=== PATIENT | female | born 1965 | race Caucasian/White ===

== ENCOUNTER 2017-08-08 16:25 | Inpatient (IN) | payer MEDICAID ==
[2017-08-08] MEDS ORDERED: Sodium Chloride 0.9% 1,000 ML IV STA ×2 (16:53→19:54)
--- NOTE | 2017-08-08 17:12 | ED PDOC ---
Arrival/HPI - General Chief Complaint: GI Problem Time Seen by Provider: 08/08/17 16:48 Historian: Patient, Family - History of Present Illness Narrative History of Present Illness (Text): 08/08/17 17:04 51 yo F with no significant PMH presents to ER complaining of sudden onset of vertigo, nausea, and vomiting. She was sitting in her home, drinking coffee with her sisters, she turned her head to the left and suddenly felt very dizzy, saw the world spinning around her, and became nauseous and vomited. This started about 10-15 minutes prior to presentation. She has never had this before. She denies LOC, confusion, focal weakness or numbness, slurred speech, headache, chest pain, palpitations, shortness of breath. She denies any recent travel, recent illness, sick contacts. She does report that a week ago, her brother , and that she hasn't been eating much for the past few days , especially today. Time/Duration: Prior to Arrival Symptom Onset: Sudden Symptom Course: Unchanged Activities at Onset: Rest Past Medical History - Provider Review Nursing Documentation Reviewed: Yes - Travel History Have you recently traveled outside [place] w/in the past 3 mons?: No - Past History Past History: No Previous - Infectious Disease Hx of Infectious Diseases: None - Tetanus Immunization Tetanus Immunization: Unknown - Reproductive Menopause: No Currently : No - Psychiatric Hx Substance Use: No Family/Social History - Physician Review Nursing Documentation Reviewed: Yes Family/Social History: Unknown Family HX Smoking Status: Never Smoked Hx Alcohol Use: No Hx Substance Use: No Allergies/Home Meds Allergies/Adverse Reactions: Allergies No Known Allergies Allergy (Verified 08/08/17 16:34) Home Medications: Home Meds Medication Instructions Recorded Confirmed No Known Home Med 08/08/17 08/08/17 Review of Systems - Review of Systems Constitutional: Normal Eyes: Normal ENT: Normal Respiratory: Normal Cardiovascular: Normal Gastrointestinal: Nausea, Vomiting Genitourinary Female: Normal Musculoskeletal: Normal Skin: Normal Neurological: Dizziness, Other (Room-spinning vertigo) Endocrine: Normal Hemo/Lymphatic: Normal Psychiatric: Normal Physical Exam Vital Signs Temp Pulse Resp BP Pulse Ox 08/08/17 19:30 89 18 165/88 H 99 08/08/17 18:25 87 18 129/79 98 08/08/17 16:25 98.5 F 88 18 132/79 98 Pulse: Regular Appearance: Positive for: Non-Toxic, Uncomfortable Pain Distress: None Mental Status: Positive for: Alert and Oriented X 3 - Systems Exam Head: Present: Atraumatic, Normocephalic Pupils: Present: PERRL Extroacular Muscles: Present: Other (Left lateral nystagmus at rest) Conjunctiva: Present: Normal Mouth: Present: Dry Neck: Present: Normal Range of Motion Respiratory/Chest: Present: Clear to Auscultation, Good Air Exchange. No: Accessory Muscle Use Cardiovascular: Present: Regular Rate and Rhythm, Normal S1, S2 Abdomen: Present: Normal Bowel Sounds. No: Tenderness, Distention Upper Extremity: Present: Normal Inspection. No: Cyanosis, Edema Lower Extremity: Present: Normal Inspection. No: Edema, CALF TENDERNESS Neurological: Present: GCS=15, CN II-XII Intact, Speech Normal, Motor Func Grossly Intact, Normal Sensory Function, Other (Leftward nystagmus. Artemio Hallpike positive to the left, caused her to vomit) Skin: Present: Warm, Dry, Normal Color Psychiatric: Present: Alert, Oriented x 3, Normal Insight, Normal Concentration Medical Decision Making ED Course and Treatment: 08/08/17 17:36 Impression: Vertigo Differential Diagnosis included but are not limited to: BPPV, meneire's disease , vestibular neuroma, intracranial hypertension, CVA Plan: -- 1L NS IVF bolus -- Zofran 4mg IVP -- Decadron 10mg IVP -- Meclizine 50mg PO -- CT Head -- Reassess and disposition Prior Visits: None Progress Notes: 08/08/17 19:57 -- Patient feels slightly better after initial treatment, but did not yet receive decadron; patient vomited after meclizine; continues to feel tired, dizzy, weak, nauseous -- Attempted stephanie maneuver, patient did not tolerate, and vomited again -- Ordered labs, EKG, Chest X-ray, Urinalysis, UDS 08/08/17 21:16 -- Head CT negative -- EKG and CXR unremarkable -- Labs significant for mild transaminitis and hypokalemia; ordered k-rider -- Attempted stephanie again, patient had some difficulty, and did vomit again, but did tolerate the procedure, and felt slightly better after -- Still with some nystagmus; still complaining of dizziness, nausea, weakness -- Patient unable to ambulate or tolerate PO due to nausea -- Spoke to Dr. Engle and to medical van driver who accept patient admission to hospitalist service for intractable nausea and vomiting - Lab Interpretations Lab Results: 08/08/17 19:54 08/08/17 19:54 Lab Results 08/08/17 19:54: Beta HCG, Quant < 2.39 08/08/17 19:54: Sodium 143, Potassium 3.1 L, Chloride 104, Carbon Dioxide 25, Anion Gap 17, BUN 11, Creatinine 0.7, Est GFR ( Amer) > 60, Est GFR (Non- Af Amer) > 60, Random Glucose 130 H, Calcium 10.2, Magnesium 2.0, Total Bilirubin 0.4, AST 51 H, ALT 58 H, Alkaline Phosphatase 66, Lactate Dehydrogenase 555, Total Creatine Kinase 56, Troponin I < 0.01, Total Protein 7.6, Albumin 4.5, Globulin 3.1, Albumin/Globulin Ratio 1.5 08/08/17 19:54: PT 12.6 H, INR 1.10 H, APTT 29.0 08/08/17 19:54: WBC 10.1, RBC 4.35, Hgb 12.9, Hct 39.6, MCV 91.0, MCH 29.7, MCHC 32.6, RDW 14.1, Plt Count 255, MPV 12.6 H, Gran % 59.3, Lymph % (Auto) 33.2 , Bay % (Auto) 5.6, Eos % (Auto) 1.7, Baso % (Auto) 0.2, Gran # 5.98, Lymph # ( Auto) 3.3, Bay # (Auto) 0.6, Eos # (Auto) 0.2, Baso # (Auto) 0.02 - RAD Interpretation Radiology Orders: 08/08/17 16:56 HEAD W/O CONTRAST [CT] Stat 08/08/17 19:46 CHEST PORTABLE [RAD] Stat - Medication Orders Current Medication Orders: Potassium Chloride (Potassium Chloride 10 Meq/100 Ml) 10 meq in 100 mls @ 100 mls/hr IVPB Q2H CHEMO Stop: 08/09/17 00:14 Discontinued Medications Dexamethasone (Decadron Inj) 10 mg IVP STAT STA Stop: 08/08/17 16:56 Last Admin: 08/08/17 20:06 Dose: 10 mg IVP Administration Document 08/08/17 20:06 CNR (Rec: 08/08/17 20:06 CNR [id number]) Charges for Administration # of IVP Administrations 1 Sodium Chloride (Sodium Chloride 0.9%) 1,000 mls @ 999 mls/hr IV .Q1H1M STA Stop: 08/08/17 17:53 Last Admin: 08/08/17 17:12 Dose: 999 mls/hr eMAR Start Stop Document 08/08/17 17:12 EWO (Rec: 08/08/17 17:12 EWO [id number]) Intravenous Solution Start Date 08/08/17 Start Time 17:12 End Date 08/08/17 End time 18:12 Total Infusion Time 60 Sodium Chloride (Sodium Chloride 0.9%) 1,000 mls @ 999 mls/hr IV .Q1H1M STA Stop: 08/08/17 20:54 Last Admin: 08/08/17 19:55 Dose: 999 mls/hr eMAR Start Stop Document 08/08/17 19:55 CNR (Rec: 08/08/17 19:56 CNR [id number]) Intravenous Solution Start Date 08/08/17 Start Time 19:56 Meclizine HCl (Antivert) 50 mg PO STAT STA Stop: 08/08/17 17:36 Last Admin: 08/08/17 18:30 Dose: 50 mg Metoclopramide HCl (Reglan) 10 mg IVP STAT STA Stop: 08/08/17 18:48 Last Admin: 08/08/17 20:06 Dose: 10 mg IVP Administration Document 08/08/17 20:06 CNR (Rec: 08/08/17 20:06 CNR [id number]) Charges for Administration # of IVP Administrations 1 Ondansetron HCl (Zofran Inj) 4 mg IVP STAT STA Stop: 08/08/17 16:56 Last Admin: 08/08/17 17:12 Dose: 4 mg IVP Administration Document 08/08/17 17:12 EWO (Rec: 08/08/17 17:12 EWO [id number]) Charges for Administration # of IVP Administrations 1 Ondansetron HCl (Zofran Inj) 4 mg IVP STAT STA Stop: 08/08/17 20:00 Last Admin: 08/08/17 20:06 Dose: 4 mg IVP Administration Document 08/08/17 20:06 CNR (Rec: 08/08/17 20:06 CNR [id number]) Charges for Administration # of IVP Administrations 1 Disposition/Present on Arrival - Present on Arrival Any Indicators Present on Arrival: No History of DVT/PE: No History of Uncontrolled Diabetes: No Urinary Catheter: No History of Decub. Ulcer: No History Surgical Site Infection Following: None - Disposition Have Diagnosis and Disposition been Completed?: Yes Diagnosis: BPPV (benign paroxysmal positional vertigo), Intractable nausea and vomiting, Transaminitis, Hypertension Disposition: HOSPITALIZED Disposition Time: :22 Patient Plan: Admission, Observation Patient Problems: Current Active Problems Problem Status Onset BPPV (benign paroxysmal positional vertigo) Acute Intractable nausea and vomiting Acute Transaminitis Acute Condition: FAIR Forms: [facility] [facility] (Bulgarian)
[2017-08-08 20:03] LABS: BASO # 0.02 K/mm3 (0.0-2.0); BASO % 0.2 % (0.0-3.0); EOS # 0.2 (0.0-0.7); EOS % 1.7 % (1.5-5.0); GRAN # 5.98 (1.4-6.5); GRAN % 59.3 % (50.0-68.0); HEMOGLOBIN 12.9 g/dL (12.0-16.0); LYMPH # 3.3 (1.2-3.4); LYMPH % 33.2 % (22.0-35.0); MEAN CORPUSCULAR HEMOGLOBIN 29.7 pg (25.0-35.0); MEAN CORPUSCULAR HGB CONC 32.6 g/dl (31.0-37.0); MEAN PLATELET VOLUME 12.6 fl (7.0-11.0); MONO # 0.6 (0.1-0.6); MONO % 5.6 % (1.0-6.0); RBC 4.35 10^6/uL (3.5-6.1); RED CELL DISTRIBUTION WIDTH 14.1 % (11.5-14.5); WHITE BLOOD COUNT 10.1 10^3/ul (4.5-11.0)
[2017-08-08 20:11] LABS: INR 1.1 (0.93-1.08); PROTHROMBIN TIME 12.6 SECONDS (9.4-12.5)
[2017-08-08 20:37] LABS: ALB/GLOB RATIO 1.5 (1.1-1.8); ALBUMIN 4.5 g/dL (3.0-4.8); ALT/SGPT 58 U/L (7-56); AST/SGOT 51 U/L (14-36); BLOOD UREA NITROGEN 11 mg/dL (7-21); CALCIUM 10.2 mg/dL (8.4-10.5); GFR AFRICAN-AMERICAN > 60; GFR NON-AFRICAN AMERICAN > 60
--- NOTE | 2017-08-08 20:37 | CT ---
EXAM: CT Head Without Intravenous Contrast CLINICAL HISTORY: 51 years old, female; Signs and symptoms; Dizziness; Additional info: Vertigo TECHNIQUE: Axial computed tomography images of the head/brain without intravenous contrast. All CT scans at this facility use one or more dose reduction techniques, viz.: automated exposure control; ma/kV adjustment per patient size (including targeted exams where dose is matched to indication; i.e. head); or iterative reconstruction technique. Coronal and sagittal reformatted images were created and reviewed. COMPARISON: No relevant prior studies available. FINDINGS: Brain: No hemorrhage. No significant white matter disease. No edema. Ventricles: No hydrocephalus. Bones: Skull is intact. Sinuses: No acute sinusitis. Small polyp versus mucus retention cyst in left maxillary sinus. Mastoid air cells: Minimal mastoid air cell opacification. IMPRESSION: No CT evidence of acute intracranial abnormality.
[2017-08-08 20:49] LABS: TROPONIN I < 0.01 ng/mL
[2017-08-08 21:22] LABS: PH,URINE 7.5 (4.7-8.0); URINE BILIRUBIN NEGATIVE (NEGATIVE); URINE BLOOD TRACE-LYSED (NEGATIVE); URINE GLUCOSE (UA) NEGATIVE (NEGATIVE); URINE LEUKOCYTE ESTERASE SMALL Leu/uL (NEGATIVE); URINE PROTEIN NEGATIVE mg/dL (<30 mg/dL); URINE UROBILINOGEN 0.2 E.U./dL (<1 E.U./dL)
[2017-08-08 21:23] LABS: URINE APPEARANCE CLEAR (CLEAR); URINE COLOR YELLOW (YELLOW)
[2017-08-08 21:37] LABS: BARBITURATES, UR NEGATIVE (NEGATIVE); BENZODIAZEPINES, UR NEGATIVE (NEGATIVE); OPIATES, UR NEGATIVE (NEGATIVE); PHENCYCLIDINE, UR NEGATIVE (NEGATIVE)
--- NOTE | 2017-08-08 22:27 | CP.PCM.HP ---
<Rinku Helms - Last Filed: 08/08/17 23:41> History of Present Illness - History of Present Illness History of Present Illness: This patient is a 51 year old female with no significant past medical history who presents complaining of sudden onset of dizziness, nausea, and vomiting. Patient states she was sitting in her home, drinking coffee with her sisters; when she turned her head, she suddenly felt dizzy as if the room was spinning. Patient then became nauseous and vomited. Patient vomited again on the way to E.R and inside the E.R. She denies any blood in the vomit. Patient states she felt better post medication/Lilo's maneuver in the E.D. ROS POSITIVES: Dizziness, Nausea, Non-bloody/Non-bilious vomiting NEGATIVES: Headache, blurry vision, hearing loss, motor/sensory loss, chest pain, palpitations, SOB, abdominal pain, changes in bowel habits, blood in stool , blood in the urine, urinary frequency, dysuria, sick contacts, recent illness. PMHx: Denies PSHx: Denies Allergies: Cat Dander SocialHx: Denies Tobacco, Alcohol, or illicit drug use. 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 Hos: Denies FamHx: Heart Disease on Paternal Side Meds: Denies Present on Admission - Present on Admission Any Indicators Present on Admission: No Review of Systems - Review of Systems All systems: reviewed and no additional remarkable complaints except (As per HPI ) Review of Systems: As per HPI Past Patient History - Infectious Disease Hx of Infectious Diseases: None - Tetanus Immunizations Tetanus Immunization: Unknown - Past Social History Smoking Status: Never Smoked - PSYCHIATRIC Hx Substance Use: No - SURGICAL HISTORY Hx Surgeries: No Meds Allergies/Adverse Reactions: Allergies Allergy/AdvReac Type Severity Reaction Status Date / Time No Known Allergies Allergy Verified 08/08/17 16:34 Physical Exam - Constitutional Appears: No Acute Distress - Head Exam Head Exam: ATRAUMATIC, NORMAL INSPECTION, NORMOCEPHALIC - Eye Exam Eye Exam: EOMI, Nystagmus, PERRL. absent: Scleral icterus - ENT Exam ENT Exam: Mucous Membranes Moist - Neck Exam Neck exam: Negative for: Lymphadenopathy - Respiratory Exam Respiratory Exam: Clear to Auscultation Bilateral. absent: Rales, Rhonchi, Wheezes - Cardiovascular Exam Cardiovascular Exam: RRR, +S1, +S2 - GI/Abdominal Exam GI & Abdominal Exam: Normal Bowel Sounds, Soft. absent: Tenderness - Extremities Exam Extremities exam: Positive for: normal capillary refill, normal inspection - Neurological Exam Neurological exam: Alert, CN II-XII Intact, Oriented x3 - Psychiatric Exam Psychiatric exam: Normal Affect, Normal Mood - Skin Skin Exam: Dry, Intact, Normal Color, Warm Results - Vital Signs Recent Vital Signs: Last Vital Signs Temp 98.5 F 08/08/17 16:25 Pulse 89 08/08/17 19:30 Resp 18 08/08/17 19:30 BP 165/88 H 08/08/17 19:30 Pulse Ox 99 08/08/17 19:30 - Labs Result Diagrams: 08/08/17 19:54 08/08/17 19:54 Assessment & Plan - Assessment and Plan (Free Text) Assessment: 51 year old female with no significant PMHx admitted for evaluation and treatment of Dizziness. Plan: Dizziness/Nausea/Vomiting Likely Benign Paroxysmal Positional Vertigo Positive [place] Hallpike in the ED Received Decadron, Reglan, Zofran, Meclizine, and Lilo's in ED with minor improvement of symptoms. Neurology Consult (Dr. Stewart) Start Valium 2mg Q6H PRN UA shows trace ketones/blood and Small Leuk Es F/U on UC Elevated LFT's Fasting Lipid Panel GI Consult (Dr. Souza) Hepatitis Panel HgBA1C HypoKalemia Replenished in ED CMP in AM Replenish As needed Mg/Phos Proph SCD's/Protonix NPO Patient discussed with Attending (Dr. Egnle) Rinku Helms, PGY-1 <Julianne Engle - Last Filed: 08/09/17 06:23> Results - Vital Signs Recent Vital Signs: Last Vital Signs Temp 98.4 F 08/08/17 23:05 Pulse 92 H 08/08/17 23:05 Resp 20 08/08/17 23:05 BP 166/97 H 08/08/17 23:05 Pulse Ox 99 08/08/17 19:30 - Labs Result Diagrams: 08/08/17 19:54 08/08/17 19:54 Attending/Attestation - Attestation I have personally seen and examined this patient.: Yes I have fully participated in the care of the patient.: Yes I have reviewed all pertinent clinical information: Yes Notes (Text): 08/09/17 04:15 Patient was seen when she was in [id number]. Medical record was reviewed. Agree with history , physical examination, assessment and plan.
[2017-08-09] MEDS ORDERED: Sodium Chloride 0.9% 1,000 ML IV SCH (05:30)
[2017-08-09 07:25] LABS: GRAN # 11.23 (1.4-6.5); GRAN % 87.6 % (50.0-68.0); HEMOGLOBIN 12.2 g/dL (12.0-16.0); LYMPH # 1.3 (1.2-3.4); LYMPH % 10.1 % (22.0-35.0); MEAN CELL VOLUME 91.1 fl (80.0-105.0); MEAN CORPUSCULAR HEMOGLOBIN 29.5 pg (25.0-35.0); MEAN CORPUSCULAR HGB CONC 32.4 g/dl (31.0-37.0); MEAN PLATELET VOLUME 12.1 fl (7.0-11.0); MONO # 0.3 (0.1-0.6); MONO % 2.3 % (1.0-6.0); RBC 4.14 10^6/uL (3.5-6.1); RED CELL DISTRIBUTION WIDTH 14.5 % (11.5-14.5); WHITE BLOOD COUNT 12.8 10^3/ul (4.5-11.0)
[2017-08-09 07:53] LABS: ALB/GLOB RATIO 1.3 (1.1-1.8); ALBUMIN 3.9 g/dL (3.0-4.8); ALT/SGPT 47 U/L (7-56); AST/SGOT 27 U/L (14-36); BLOOD UREA NITROGEN 8 mg/dL (7-21); CALCIUM 8.7 mg/dL (8.4-10.5); GFR AFRICAN-AMERICAN > 60; GFR NON-AFRICAN AMERICAN > 60; HDL CHOLESTEROL 35 mg/dL (29-60)
[2017-08-09 07:55] LABS: LDL CHOLESTEROL 133 mg/dL (0-129)
--- NOTE | 2017-08-09 09:21 | RAD ---
HISTORY: dizziness COMPARISON: No prior. FINDINGS: LUNGS: No active pulmonary disease. PLEURA: No significant pleural effusion identified, no pneumothorax apparent. CARDIOVASCULAR: Normal. OSSEOUS STRUCTURES: No significant abnormalities. VISUALIZED UPPER ABDOMEN: Normal. OTHER FINDINGS: None. IMPRESSION: No active disease.
[2017-08-09] MEDS ORDERED: Hydrocortisone 2.5% Rectal Cream(30 gm) PR SCH (10:00)
[2017-08-09 12:33] LABS: FREE T4 0.96 ng/dL (0.78-2.19)
--- NOTE | 2017-08-09 12:56 | CP.PCM.DIS ---
Addendum entered and electronically signed by Shraddha Mcconnell DO 08/09/17 15:52: Patient still feeling dizzy and with elevated BPs. CTA head/neck negative. Per nursing, patient is unsteady on her feet. Added Hydralazine 10mg Q6H prn for elevated SBP. Activity out of bed to chair. Will hold discharge today and likely discharge home tomorrow pending PT evaluation. Plan discussed with Dr Roberts. Original Note: <Shraddha Mcconnell - Last Filed: 08/09/17 15:11> Provider - Provider Date of Admission: 08/08/17 21:14 Attending physician: Jez Roberts MD Consults: Neuro: José Time Spent in preparation of Discharge (in minutes): 32 Hospital Course - Lab Results Lab Results: Most Recent Lab Values WBC 12.8 10^3/ul (4.5-11.0) H D 08/09/17 06:45 RBC 4.14 10^6/uL (3.5-6.1) 08/09/17 06:45 Hgb 12.2 g/dL (12.0-16.0) 08/09/17 06:45 Hct 37.7 % (36.0-48.0) 08/09/17 06:45 MCV 91.1 fl (80.0-105.0) 08/09/17 06:45 MCH 29.5 pg (25.0-35.0) 08/09/17 06:45 MCHC 32.4 g/dl (31.0-37.0) 08/09/17 06:45 RDW 14.5 % (11.5-14.5) 08/09/17 06:45 Plt Count 249 10^3/uL (120.0-450.0) 08/09/17 06:45 MPV 12.1 fl (7.0-11.0) H 08/09/17 06:45 Gran % 87.6 % (50.0-68.0) H 08/09/17 06:45 Lymph % (Auto) 10.1 % (22.0-35.0) L 08/09/17 06:45 [place] % (Auto) 2.3 % (1.0-6.0) 08/09/17 06:45 Eos % (Auto) 0.0 % (1.5-5.0) L 08/09/17 06:45 Baso % (Auto) 0.0 % (0.0-3.0) 08/09/17 06:45 Gran # 11.23 (1.4-6.5) H 08/09/17 06:45 Lymph # (Auto) 1.3 (1.2-3.4) 08/09/17 06:45 [place] # (Auto) 0.3 (0.1-0.6) 08/09/17 06:45 Eos # (Auto) 0.0 (0.0-0.7) 08/09/17 06:45 Baso # (Auto) 0.00 K/mm3 (0.0-2.0) 08/09/17 06:45 PT 12.6 SECONDS (9.4-12.5) H 08/08/17 19:54 INR 1.10 (0.93-1.08) H 08/08/17 19:54 APTT 29.0 Seconds (25.1-36.5) 08/08/17 19:54 Sodium 144 mmol/L (132-148) 08/09/17 06:45 Potassium 3.9 mmol/L (3.6-5.0) 08/09/17 06:45 Chloride 107 mmol/L (98-107) 08/09/17 06:45 Carbon Dioxide 25 mmol/L (21-33) 08/09/17 06:45 Anion Gap 15 (10-20) 08/09/17 06:45 BUN 8 mg/dL (7-21) 08/09/17 06:45 Creatinine 0.7 mg/dl (0.7-1.2) 08/09/17 06:45 Est GFR ( Amer) > 60 08/09/17 06:45 Est GFR (Non-Af Amer) > 60 08/09/17 06:45 Random Glucose 119 mg/dL (70-110) H 08/09/17 06:45 Hemoglobin A1c 5.5 % (4.2-6.5) 08/09/17 06:45 Calcium 8.7 mg/dL (8.4-10.5) 08/09/17 06:45 Phosphorus 3.4 mg/dL (2.5-4.5) 08/09/17 06:45 Magnesium 1.8 mg/dL (1.7-2.2) 08/09/17 06:45 Total Bilirubin 0.3 mg/dL (0.2-1.3) 08/09/17 06:45 AST 27 U/L (14-36) 08/09/17 06:45 ALT 47 U/L (7-56) 08/09/17 06:45 Alkaline Phosphatase 58 U/L (38-126) 08/09/17 06:45 Lactate Dehydrogenase 555 U/L (333-699) 08/08/17 19:54 Total Creatine Kinase 56 U/L (35-230) 08/08/17 19:54 Troponin I < 0.01 ng/mL 08/08/17 19:54 Total Protein 6.7 g/dL (5.8-8.3) 08/09/17 06:45 Albumin 3.9 g/dL (3.0-4.8) 08/09/17 06:45 Globulin 2.9 gm/dL 08/09/17 06:45 Albumin/Globulin Ratio 1.3 (1.1-1.8) 08/09/17 06:45 Triglycerides 71 mg/dL (35-160) 08/09/17 06:45 Cholesterol 180 mg/dL (130-200) 08/09/17 06:45 LDL Cholesterol Direct 133 mg/dL (0-129) H 08/09/17 06:45 HDL Cholesterol 35 mg/dL (29-60) 08/09/17 06:45 Free T4 0.96 ng/dL (0.78-2.19) 08/09/17 11:45 TSH 3rd Generation 0.27 mIU/mL (0.46-4.68) L 08/09/17 11:45 Beta HCG, Quant < 2.39 mIU/mL (0-6.15) 08/08/17 19:54 Urine Color Yellow (YELLOW) 08/08/17 20:25 Urine Appearance Clear (CLEAR) 08/08/17 20:25 Urine pH 7.5 (4.7-8.0) 08/08/17 20:25 Ur Specific [place] 1.015 (1.005-1.035) 08/08/17 20:25 Urine Protein Negative mg/dL (<30 mg/dL) 08/08/17 20:25 Urine Glucose (UA) Negative mg/dL (NEGATIVE) 08/08/17 20:25 Urine Ketones Trace mg/dL (NEGATIVE) H 08/08/17 20:25 Urine Blood Trace-lysed (NEGATIVE) H 08/08/17 20:25 Urine Nitrate Negative (NEGATIVE) 08/08/17 20:25 Urine Bilirubin Negative (NEGATIVE) 08/08/17 20:25 Urine Urobilinogen 0.2 E.U./dL (<1 E.U./dL) 08/08/17 20:25 Ur Leukocyte Esterase Small [place]/uL (NEGATIVE) H 08/08/17 20:25 Urine RBC 5 - 10 /hpf (0-2) 08/08/17 20:25 Urine WBC 5 - 10 /hpf (0-6) 08/08/17 20:25 Ur Epithelial Cells 10 - 12 /hpf (0-5) 08/08/17 20:25 Urine Opiates Screen Negative (NEGATIVE) 08/08/17 20:25 Urine Methadone Screen Negative (NEGATIVE) 08/08/17 20:25 Ur Barbiturates Screen Negative (NEGATIVE) 08/08/17 20:25 Ur Phencyclidine Scrn Negative (NEGATIVE) 08/08/17 20:25 Ur Amphetamines Screen Negative (NEGATIVE) 08/08/17 20:25 U Benzodiazepines Scrn Negative (NEGATIVE) 08/08/17 20:25 U Oth Cocaine Metabols Negative (NEGATIVE) 08/08/17 20:25 U Cannabinoids Screen Negative (NEGATIVE) 08/08/17 20:25 - Hospital Course Hospital Course: History of Present Illness: This patient is a 51 year old female with no significant past medical history who presents complaining of sudden onset of dizziness, nausea, and vomiting. Patient states she was sitting in her home, drinking coffee with her sisters; when she turned her head, she suddenly felt dizzy as if the room was spinning. Patient then became nauseous and vomited. Patient vomited again on the way to E.R and inside the E.R. She denies any blood in the vomit. Patient states she felt better post medication/Lilo's maneuver in the E.D. Hospital Course: Patient admitted to Med/Surg for benign positional veritgo. CT head showed no acute changes. Patient was started on Valium for dizziness. Neurology was consulted. Liver enzymes were mildly elevated on admission and normalized. Hepatitis panel is pending. Patient also found to have low TSH but normal Free T4, recommending repeat thyroid studies in 4-6 weeks. LDH elevated at 133, recommending diet modification and exercise at this time. Patient symptoms improved. No further episodes of vomiting. Diet was advanced slowly. Patient went for CTA head and neck, official report pending. Per neurology, patient is medically stable for discharge home. Patient given prescription for Outpatient vestibular rehab 3x a week and Valium 2mg Q12H x 5 days. Patient to follow up with Neurology outpatient. Discharge Medications: Valium 2mg PO Q12H x 5 days Discharge Exam - Head Exam Head Exam: ATRAUMATIC, NORMAL INSPECTION, NORMOCEPHALIC - Eye Exam Eye Exam: EOMI, Normal appearance Pupil Exam: NORMAL ACCOMODATION - ENT Exam ENT Exam: Mucous Membranes Moist - Respiratory Exam Respiratory Exam: Clear to PA & Lateral, NORMAL BREATHING PATTERN, UNREMARKABLE. absent: Rales, Rhonchi, Wheezes, Respiratory Distress - Cardiovascular Exam Cardiovascular Exam: REGULAR RHYTHM, +S1, +S2 - GI/Abdominal Exam GI & Abdominal Exam: Normal Bowel Sounds, Soft. absent: Guarding, Rebound, Rigid, Tenderness, Unremarkable - Back Exam Back exam: NORMAL INSPECTION - Neurological Exam Neurological exam: Alert, Oriented x3 - Psychiatric Exam Psychiatric exam: Normal Affect, Normal Mood - Skin Skin Exam: Dry, Normal Color, Warm Discharge Plan - Discharge Medications Prescriptions: diaZEpam [Valium] 2 mg PO Q12 PRN #10 tab PRN Reason: Anxiety - Follow Up Plan Condition: FAIR Disposition: HOME/ ROUTINE Instructions: Vertigo (a Type of Dizziness), Soft Diet, Nausea and Vomiting, Adult, Vestibular Exercises Additional Instructions: 1. Patient is clear for discharge home 2. Patient with elevated BPs while inhouse, f/u for BP check outpatient 3. TSH low, Recommending repeat TSH and Free T4 in 4-6 weeks 4. Continue medications as prescribed Referrals: Thomas Kumar MD [Staff Provider] - <Jez Roberts - Last Filed: 08/09/17 16:37> Provider - Provider Date of Admission: 08/08/17 21:14 Attending physician: Jez Roberts MD Hospital Course - Lab Results Lab Results: Most Recent Lab Values WBC 12.8 10^3/ul (4.5-11.0) H D 08/09/17 06:45 RBC 4.14 10^6/uL (3.5-6.1) 08/09/17 06:45 Hgb 12.2 g/dL (12.0-16.0) 08/09/17 06:45 Hct 37.7 % (36.0-48.0) 08/09/17 06:45 MCV 91.1 fl (80.0-105.0) 08/09/17 06:45 MCH 29.5 pg (25.0-35.0) 08/09/17 06:45 MCHC 32.4 g/dl (31.0-37.0) 08/09/17 06:45 RDW 14.5 % (11.5-14.5) 08/09/17 06:45 Plt Count 249 10^3/uL (120.0-450.0) 08/09/17 06:45 MPV 12.1 fl (7.0-11.0) H 08/09/17 06:45 Gran % 87.6 % (50.0-68.0) H 08/09/17 06:45 Lymph % (Auto) 10.1 % (22.0-35.0) L 08/09/17 06:45 [place] % (Auto) 2.3 % (1.0-6.0) 08/09/17 06:45 Eos % (Auto) 0.0 % (1.5-5.0) L 08/09/17 06:45 Baso % (Auto) 0.0 % (0.0-3.0) 08/09/17 06:45 Gran # 11.23 (1.4-6.5) H 08/09/17 06:45 Lymph # (Auto) 1.3 (1.2-3.4) 08/09/17 06:45 [place] # (Auto) 0.3 (0.1-0.6) 08/09/17 06:45 Eos # (Auto) 0.0 (0.0-0.7) 08/09/17 06:45 Baso # (Auto) 0.00 K/mm3 (0.0-2.0) 08/09/17 06:45 PT 12.6 SECONDS (9.4-12.5) H 08/08/17 19:54 INR 1.10 (0.93-1.08) H 08/08/17 19:54 APTT 29.0 Seconds (25.1-36.5) 08/08/17 19:54 Sodium 144 mmol/L (132-148) 08/09/17 06:45 Potassium 3.9 mmol/L (3.6-5.0) 08/09/17 06:45 Chloride 107 mmol/L (98-107) 08/09/17 06:45 Carbon Dioxide 25 mmol/L (21-33) 08/09/17 06:45 Anion Gap 15 (10-20) 08/09/17 06:45 BUN 8 mg/dL (7-21) 08/09/17 06:45 Creatinine 0.7 mg/dl (0.7-1.2) 08/09/17 06:45 Est GFR ( Amer) > 60 08/09/17 06:45 Est GFR (Non-Af Amer) > 60 08/09/17 06:45 Random Glucose 119 mg/dL (70-110) H 08/09/17 06:45 Hemoglobin A1c 5.5 % (4.2-6.5) 08/09/17 06:45 Calcium 8.7 mg/dL (8.4-10.5) 08/09/17 06:45 Phosphorus 3.4 mg/dL (2.5-4.5) 08/09/17 06:45 Magnesium 1.8 mg/dL (1.7-2.2) 08/09/17 06:45 Total Bilirubin 0.3 mg/dL (0.2-1.3) 08/09/17 06:45 AST 27 U/L (14-36) 08/09/17 06:45 ALT 47 U/L (7-56) 08/09/17 06:45 Alkaline Phosphatase 58 U/L (38-126) 08/09/17 06:45 Lactate Dehydrogenase 555 U/L (333-699) 08/08/17 19:54 Total Creatine Kinase 56 U/L (35-230) 08/08/17 19:54 Troponin I < 0.01 ng/mL 08/08/17 19:54 Total Protein 6.7 g/dL (5.8-8.3) 08/09/17 06:45 Albumin 3.9 g/dL (3.0-4.8) 08/09/17 06:45 Globulin 2.9 gm/dL 08/09/17 06:45 Albumin/Globulin Ratio 1.3 (1.1-1.8) 08/09/17 06:45 Triglycerides 71 mg/dL (35-160) 08/09/17 06:45 Cholesterol 180 mg/dL (130-200) 08/09/17 06:45 LDL Cholesterol Direct 133 mg/dL (0-129) H 08/09/17 06:45 HDL Cholesterol 35 mg/dL (29-60) 08/09/17 06:45 Free T4 0.96 ng/dL (0.78-2.19) 08/09/17 11:45 TSH 3rd Generation 0.27 mIU/mL (0.46-4.68) L 08/09/17 11:45 Beta HCG, Quant < 2.39 mIU/mL (0-6.15) 08/08/17 19:54 Urine Color Yellow (YELLOW) 08/08/17 20:25 Urine Appearance Clear (CLEAR) 08/08/17 20:25 Urine pH 7.5 (4.7-8.0) 08/08/17 20:25 Ur Specific [place] 1.015 (1.005-1.035) 08/08/17 20:25 Urine Protein Negative mg/dL (<30 mg/dL) 08/08/17 20:25 Urine Glucose (UA) Negative mg/dL (NEGATIVE) 08/08/17 20:25 Urine Ketones Trace mg/dL (NEGATIVE) H 08/08/17 20:25 Urine Blood Trace-lysed (NEGATIVE) H 08/08/17 20:25 Urine Nitrate Negative (NEGATIVE) 08/08/17 20:25 Urine Bilirubin Negative (NEGATIVE) 08/08/17 20:25 Urine Urobilinogen 0.2 E.U./dL (<1 E.U./dL) 08/08/17 20:25 Ur Leukocyte Esterase Small [place]/uL (NEGATIVE) H 08/08/17 20:25 Urine RBC 5 - 10 /hpf (0-2) 08/08/17 20:25 Urine WBC 5 - 10 /hpf (0-6) 08/08/17 20:25 Ur Epithelial Cells 10 - 12 /hpf (0-5) 08/08/17 20:25 Urine Opiates Screen Negative (NEGATIVE) 08/08/17 20:25 Urine Methadone Screen Negative (NEGATIVE) 08/08/17 20:25 Ur Barbiturates Screen Negative (NEGATIVE) 08/08/17 20:25 Ur Phencyclidine Scrn Negative (NEGATIVE) 08/08/17 20:25 Ur Amphetamines Screen Negative (NEGATIVE) 08/08/17 20:25 U Benzodiazepines Scrn Negative (NEGATIVE) 08/08/17 20:25 U Oth Cocaine Metabols Negative (NEGATIVE) 08/08/17 20:25 U Cannabinoids Screen Negative (NEGATIVE) 08/08/17 20:25 Hepatitis A IgM Ab Negative (NEGATIVE) 08/09/17 06:45 Hep Bs Antigen Negative (NEGATIVE) 08/09/17 06:45 Hep B Core IgM Ab Negative (NEGATIVE) 08/09/17 06:45 Hepatitis C Antibody Negative (NEGATIVE) 08/09/17 06:45 Attending/Attestation - Attestation I have personally seen and examined this patient.: Yes I have fully participated in the care of the patient.: Yes I have reviewed all pertinent clinical information, including history, physical exam and plan: Yes Notes (Text): 08/09/17 16:32 51 year old female with no significant past medical history who presented with complaint of dizziness associated with nausea and vomiting. CT head and CTA head/neck were negative for acute findings. Her nausea/ vomiting resolved. Neurology evaluation was appreciated who recommended outpatient follow up for vestibular rehab. Initially she stated her symptoms improved but now still complaints of unsteady gait. Discharge will be held for today. PT evaluation is requested. LFTs were initially mildly elevated but now improved. TSH was low with normal FT4; recommended to repeat TFTs in 4-6 weeks. She initially had hypokalemia on admission which was repleted. Jez Roberts MD Hospitalist.
--- NOTE | 2017-08-09 13:36 | CP.PCM.CON ---
History of Present Illness - History of Present Illness History of Present Illness: Mrs. Quinones is a 51-year-old woman with no significant past medical history, denies recent illness or injury and developed spinning sensation with nausea, vomiting. On exam, she has right fast phase nystagmus. Valium has helped. Non -contrast CT head was normal. Review of Systems - Review of Systems All systems: reviewed and no additional remarkable complaints except Past Patient History - Infectious Disease Hx of Infectious Diseases: None - Tetanus Immunizations Tetanus Immunization: Unknown - Past Social History Smoking Status: Never Smoked - CARDIAC Hx Cardiac Disorders: No - PULMONARY Hx Respiratory Disorders: No - NEUROLOGICAL Hx Neurological Disorder: No - HEENT Hx HEENT Problems: No - RENAL Hx Chronic Kidney Disease: No - ENDOCRINE/METABOLIC Hx Endocrine Disorders: No - HEMATOLOGICAL/ONCOLOGICAL Hx Blood Disorders: No - INTEGUMENTARY Hx Dermatological Problems: No - MUSCULOSKELETAL/RHEUMATOLOGICAL Hx Musculoskeletal Disorders: No Hx Falls: No - GASTROINTESTINAL Hx Gastrointestinal Disorders: No - GENITOURINARY/GYNECOLOGICAL Hx Genitourinary Disorders: No - PSYCHIATRIC Hx Substance Use: No - SURGICAL HISTORY Hx Surgeries: No Meds Home Medications: Home Medication List Medication Instructions Recorded Confirmed Type diaZEpam [Valium] 2 mg PO Q12 PRN #10 tab 08/09/17 Rx Allergies/Adverse Reactions: Allergies Allergy/AdvReac Type Severity Reaction Status Date / Time No Known Allergies Allergy Verified 08/08/17 16:34 - Medications Medications: Current Medications Diazepam (Valium) 2 mg PO Q6H PRN; Protocol PRN Reason: Dizziness Last Admin: 08/09/17 09:23 Dose: 2 mg Sodium Chloride (Sodium Chloride 0.9%) 1,000 mls @ 100 mls/hr IV .Q10H CHEMO Ondansetron HCl (Zofran Inj) 4 mg IVP Q6H PRN PRN Reason: Nausea/Vomiting Pantoprazole Sodium (Protonix Ec Tab) 40 mg PO 0600 CHEMO Physical Exam - Neurological Exam Neurological exam: Alert, CN II-XII Intact, Normal Gait, Oriented x3, Reflexes Normal Additional comments: Nystagmus on right lateral and upper gaze noted. Results - Vital Signs Recent Vital Signs: Last Vital Signs Temp 98 F 08/09/17 08:04 Pulse 94 H 08/09/17 08:04 Resp 20 08/09/17 08:04 BP 155/73 H 08/09/17 08:04 Pulse Ox 97 08/09/17 08:04 - Labs Result Diagrams: 08/09/17 06:45 08/09/17 06:45 Labs: Laboratory Results - last 24 hr 08/09/17 08/09/17 08/09/17 06:45 06:45 06:45 WBC 12.8 H D RBC 4.14 Hgb 12.2 Hct 37.7 MCV 91.1 MCH 29.5 MCHC 32.4 RDW 14.5 Plt Count 249 MPV 12.1 H Gran % 87.6 H Lymph % (Auto) 10.1 L [place] % (Auto) 2.3 Eos % (Auto) 0.0 L Baso % (Auto) 0.0 Gran # 11.23 H Lymph # (Auto) 1.3 [place] # (Auto) 0.3 Eos # (Auto) 0.0 Baso # (Auto) 0.00 Sodium 144 Potassium 3.9 Chloride 107 Carbon Dioxide 25 Anion Gap 15 BUN 8 Creatinine 0.7 Est GFR ( Amer) > 60 Est GFR (Non-Af Amer) > 60 Random Glucose 119 H Hemoglobin A1c 5.5 Calcium 8.7 Phosphorus 3.4 Magnesium 1.8 Total Bilirubin 0.3 AST 27 ALT 47 Alkaline Phosphatase 58 Total Protein 6.7 Albumin 3.9 Globulin 2.9 Albumin/Globulin Ratio 1.3 Triglycerides 71 Cholesterol 180 LDL Cholesterol Direct 133 H HDL Cholesterol 35 Free T4 TSH 3rd Generation 08/09/17 11:45 WBC RBC Hgb Hct MCV MCH MCHC RDW Plt Count MPV Gran % Lymph % (Auto) [place] % (Auto) Eos % (Auto) Baso % (Auto) Gran # Lymph # (Auto) [place] # (Auto) Eos # (Auto) Baso # (Auto) Sodium Potassium Chloride Carbon Dioxide Anion Gap BUN Creatinine Est GFR ( Amer) Est GFR (Non-Af Amer) Random Glucose Hemoglobin A1c Calcium Phosphorus Magnesium Total Bilirubin AST ALT Alkaline Phosphatase Total Protein Albumin Globulin Albumin/Globulin Ratio Triglycerides Cholesterol LDL Cholesterol Direct HDL Cholesterol Free T4 0.96 TSH 3rd Generation 0.27 L Assessment & Plan (1) BPPV (benign paroxysmal positional vertigo) Assessment and Plan: Will start Valium 2 mg Q8 PRN vertigo and obtain a CTA of the head/neck to rule out VBI. I would like the patient to follow up with vestibular rehab and she can see me in the outpatient office for follow up if the CTA is normal. Thank you. Status: Acute Priority: High
--- NOTE | 2017-08-09 14:55 | CT ---
PROCEDURE: CT Angiography of the neck with contrast HISTORY: VBI COMPARISON: None available. TECHNIQUE: Contiguous axial images of the neck were obtained from the level of the skull-base to the superior mediastinum in the arteriographic phase of enhancement. Coronal and sagittal reformats or also generated. IV contrast dose: Radiation Dose - DLP: mGy-cm This CT exam was performed using one or more of the following dose reduction techniques: Automated exposure control, adjustment of the mA and/or kV according to patient size, and/or use of iterative reconstruction technique. FINDINGS: RIGHT CAROTID ARTERIES: Common Carotid Artery: Normal. Carotid Bifurcation: Normal. Internal Carotid Artery:There is minimal irregularity of the contour of the internal carotid which may represent mild fibromuscular dysplasia. There is no significant stenosis External Carotid Artery (proximal branches): Normal. LEFT CAROTID ARTERIES: Common Carotid Artery: Normal. Carotid Bifurcation: Normal. Internal Carotid Artery:Normal. External Carotid Artery (proximal branches): Normal. VERTEBRAL ARTERIES: Right Vertebral Artery: Dominant Left Vertebral Artery: Normal. OTHER FINDINGS: None. IMPRESSION: No significant stenosis CT Angiography of the Brain. HISTORY: VBI COMPARISON: None available. TECHNIQUE: CT angiography of the intracranial arteries was performed. Coronal and sagittal maximum intensity projection reformated images were generated. This CT exam was performed using one or more of the following dose reduction techniques: Automated exposure control, adjustment of the mA and/or kV according to patient size, and/or use of iterative reconstruction technique. FINDINGS: INTERNAL CEREBRAL ARTERIES: Unremarkable. The skull base, petrous, cavernous and supraclinoid segments are bilaterally widely patent. ANTERIOR CEREBRAL ARTERIES: Unremarkable. A1 and A2 segments are widely patent. Smaller distal branches unremarkable, as visualized. MIDDLE CEREBRAL ARTERIES: Unremarkable. M1 and M2 segments are widely patent. Perisylvian branches grossly symmetric. POSTERIOR CIRCULATION: Basilar Artery: Unremarkable. Distal Vertebral Arteries: Unremarkable. Posterior Cerebral Arteries: Unremarkable. Posterior Inferior Cerebellar Arteries: Unremarkable. ANEURYSM/ VASCULAR MALFORMATIONS: None. OTHER FINDINGS: None. IMPRESSION: Unremarkable CT Angiography of the Brain.
[2017-08-09 16:03] LABS: HEPATITIS B SURFACE AG Negative (NEGATIVE)
[2017-08-09 16:09] LABS: HEPATITIS A IGM NEGATIVE (NEGATIVE); HEPATITIS B CORE AB NEGATIVE (NEGATIVE)
[2017-08-09 16:21] LABS: HEPATITIS C ANTIBODY NEGATIVE (NEGATIVE)
--- NOTE | 2017-08-09 16:22 | CARD ---
APPROVED REPORT EKG Measurement Heart [id number] <Conclusion> Normal sinus rhythm Normal ECG
[2017-08-10] MEDS: Pantoprazole 40 mg EC Tab PO SCH (06:06)
[2017-08-10 07:51] LABS: BASO # 0.01 K/mm3 (0.0-2.0); BASO % 0.1 % (0.0-3.0); EOS # 0.1 (0.0-0.7); EOS % 0.5 % (1.5-5.0); GRAN # 8.25 (1.4-6.5); GRAN % 74.5 % (50.0-68.0); HEMOGLOBIN 11.8 g/dL (12.0-16.0); LYMPH % 17.9 % (22.0-35.0); MEAN CELL VOLUME 91.8 fl (80.0-105.0); MEAN CORPUSCULAR HEMOGLOBIN 29.4 pg (25.0-35.0); MEAN CORPUSCULAR HGB CONC 32.1 g/dl (31.0-37.0); MEAN PLATELET VOLUME 11.4 fl (7.0-11.0); MONO # 0.8 (0.1-0.6); RBC 4.01 10^6/uL (3.5-6.1); WHITE BLOOD COUNT 11.1 10^3/ul (4.5-11.0)
[2017-08-10 08:11] LABS: ALB/GLOB RATIO 1.4 (1.1-1.8); ALBUMIN 3.7 g/dL (3.0-4.8); ALT/SGPT 47 U/L (7-56); AST/SGOT 25 U/L (14-36); BLOOD UREA NITROGEN 11 mg/dL (7-21); CALCIUM 9.1 mg/dL (8.4-10.5); GFR AFRICAN-AMERICAN > 60; GFR NON-AFRICAN AMERICAN > 60
[2017-08-10] MEDS ORDERED: Potassium Chloride 20 mEq ER Tab PO STA (08:57)
--- NOTE | 2017-08-10 08:59 | CP.PCM.PN ---
<Tiki Alexander - Last Filed: 08/10/17 11:50> Subjective - Date & Time of Evaluation Date of Evaluation: 08/10/17 Time of Evaluation: 09:30 - Subjective Subjective: Progress Note for Hospitalist, Renetta Alexander PGY2 Patient seen and examined at bedside. There were no acute overnight events as per nursing staff. Patient feels well today. She states her dizziness has improved and is able to ambulate. She denies chest pain, shortness of breath, nausea/vomiting/diarrhea, vision changes, fever/chills, ear pain. Objective - Vital Signs/Intake and Output Vital Signs (last 24 hours): Temp Pulse Resp BP Pulse Ox 98.2 F 89 20 151/88 H 97 08/10/17 08:29 08/10/17 08:29 08/10/17 08:29 08/10/17 08:29 08/10/17 08:29 - Medications Medications: Current Medications Diazepam (Valium) 2 mg PO Q6H PRN; Protocol PRN Reason: Dizziness Last Admin: 08/09/17 17:25 Dose: 2 mg Hydralazine HCl (Apresoline) 10 mg IVP Q6 PRN PRN Reason: Systolic Blood Pressure Last Admin: 08/09/17 17:18 Dose: 10 mg Ondansetron HCl (Zofran Inj) 4 mg IVP Q6H PRN PRN Reason: Nausea/Vomiting Last Admin: 08/09/17 17:55 Dose: 4 mg Pantoprazole Sodium (Protonix Ec Tab) 40 mg PO 0600 CHEMO Last Admin: 08/10/17 06:06 Dose: 40 mg Potassium Chloride (K-Dur 20 Meq Er Tab) 40 meq PO STAT STA Stop: 08/10/17 08:58 - Labs Labs: 08/10/17 07:15 08/10/17 07:15 PT 12.6 SECONDS (9.4-12.5) H 08/08/17 19:54 INR 1.10 (0.93-1.08) H 08/08/17 19:54 APTT 29.0 Seconds (25.1-36.5) 08/08/17 19:54 - Constitutional Appears: No Acute Distress - Head Exam Head Exam: ATRAUMATIC, NORMAL INSPECTION, NORMOCEPHALIC - Eye Exam Eye Exam: Normal appearance, PERRL Pupil Exam: NORMAL ACCOMODATION, PERRL - ENT Exam ENT Exam: Mucous Membranes Moist - Respiratory Exam Respiratory Exam: Clear to Ausculation Bilateral, NORMAL BREATHING PATTERN. absent: Rales, Rhonchi, Wheezes - Cardiovascular Exam Cardiovascular Exam: REGULAR RHYTHM, +S1, +S2. absent: Gallop, Rubs, Murmur - GI/Abdominal Exam GI & Abdominal Exam: Soft, Normal Bowel Sounds. absent: Rigid, Tenderness, Mass , Rebound - Extremities Exam Extremities Exam: Normal Inspection. absent: Calf Tenderness, Pedal Edema - Neurological Exam Neurological Exam: Alert, Awake, CN II-XII Intact, Oriented x3 - Psychiatric Exam Psychiatric exam: Normal Affect, Normal Mood - Skin Skin Exam: Dry, Intact, Warm Assessment and Plan - Assessment and Plan (Free Text) Assessment: This is a 51yo family with no PMH admitted for dizziness secondary to vertigo. Plan: 1. Vertigo (improved) - Most likely BPPV - Valium prn - Zofran prn - Vestibular therapy - Head CT negative - CTA head negative - Patient will follow up with neurology as outpatient 2. Hypokalemia - K: 3.1 - Will replace and continue to monitor 3. Elevated BP - transient- can be very high to mildly elevated - Will start Lisinopril 2.5 mg daily - Hydralazine prn - Follow up with PMD for further evaluation 4. Transaminitis (resolved) - Hep panel negative 5. Low TSH - T4 normal - recommend to follow up and repeat as outpatient DVT ppx: SCDs GI ppx: Protonix Dispo: Patient was supposed to be d/c yesterday but was still dizzy. Patient is still dizzy and unsteady on her feet. She will stay tonight for further monitoring. She has been given a script for outpatient vestibular therapy. Case seen, discussed and reviewed with attending. Renetta Alexander PGY2 <Jez Roberts - Last Filed: 08/10/17 13:37> Objective - Vital Signs/Intake and Output Vital Signs (last 24 hours): Temp Pulse Resp BP Pulse Ox 98.2 F 89 20 203/104 H 97 08/10/17 08:29 08/10/17 08:29 08/10/17 08:29 08/10/17 11:31 08/10/17 08:29 - Medications Medications: Current Medications Diazepam (Valium) 2 mg PO Q6H PRN; Protocol PRN Reason: Dizziness Last Admin: 08/10/17 11:45 Dose: 2 mg Hydralazine HCl (Apresoline) 10 mg IVP Q6 PRN PRN Reason: Systolic Blood Pressure Last Admin: 08/10/17 11:31 Dose: 10 mg Lisinopril (Zestril) 2.5 mg PO DAILY CHEMO Ondansetron HCl (Zofran Inj) 4 mg IVP Q6H PRN PRN Reason: Nausea/Vomiting Last Admin: 08/09/17 17:55 Dose: 4 mg Pantoprazole Sodium (Protonix Ec Tab) 40 mg PO 0600 CHEMO Last Admin: 08/10/17 06:06 Dose: 40 mg - Labs Labs: PT 12.6 SECONDS (9.4-12.5) H 08/08/17 19:54 INR 1.10 (0.93-1.08) H 08/08/17 19:54 APTT 29.0 Seconds (25.1-36.5) 08/08/17 19:54 Attending/Attestation - Attestation I have personally seen and examined this patient.: Yes I have fully participated in the care of the patient.: Yes I have reviewed all pertinent clinical information, including history, physical exam and plan: Yes Notes (Text): 08/10/17 13:35 51 year old female with no significant past medical history who presented with complaint of dizziness associated with nausea and vomiting. CT head and CTA head/neck were negative for acute findings. She was seen by neurology who recommended outpatient follow up for vestibular rehab. Her nausea/vomiting resolved but she still complains of severe dizziness and unsteady gait. Will follow up with PT recommendations. ENT evaluation is requested as well. LFTs were initially mildly elevated but now improved. TSH was low with normal FT4; recommended to repeat TFTs in 4-6 weeks. Will replete and repeat potassium. Lisinopril added for hypertension. Familiy is also at bedside and questions were answered. Jez Roberts MD Hospitalist.
--- NOTE | 2017-08-10 13:14 | CP.PCM.CON ---
<OtonielJesus Alberton - Last Filed: 08/10/17 13:58> History of Present Illness - History of Present Illness History of Present Illness: Pt. is a 51 y.o female with no significant PMH who came to the ED on Wednesday after onset of sudden dizziness. Pt. states she was sitting down having coffee with her friends and then she turned her head and felt suddenly dizzy. Pt. states she felt like the room was spinning at onset of her symptoms. In the ED, pt. states she vomited twice but after being given medication she did not vomit. Currently pt. states she feels much better than she did on Wednesday, she states her dizziness has subsided but she still has nausea. She states she vomited once this morning after being given blood pressure medication. Pt. denies GURROLA, blurry vision, hearing loss, diarrhea, CP and SOB. PMH- denies PSH-denies Allergies-NKA, NKDA SH- Denies Hospitalizations- denies FH- Heart condition (paternal side) Past Patient History - Infectious Disease Hx of Infectious Diseases: None - Tetanus Immunizations Tetanus Immunization: Unknown - Past Social History Smoking Status: Never Smoked - CARDIAC Hx Cardiac Disorders: No - PULMONARY Hx Respiratory Disorders: No - NEUROLOGICAL Hx Neurological Disorder: No - HEENT Hx HEENT Problems: No - RENAL Hx Chronic Kidney Disease: No - ENDOCRINE/METABOLIC Hx Endocrine Disorders: No - HEMATOLOGICAL/ONCOLOGICAL Hx Blood Disorders: No - INTEGUMENTARY Hx Dermatological Problems: No - MUSCULOSKELETAL/RHEUMATOLOGICAL Hx Musculoskeletal Disorders: No Hx Falls: No - GASTROINTESTINAL Hx Gastrointestinal Disorders: No - GENITOURINARY/GYNECOLOGICAL Hx Genitourinary Disorders: No - PSYCHIATRIC Hx Substance Use: No - SURGICAL HISTORY Hx Surgeries: No Meds Home Medications: Home Medication List Medication Instructions Recorded Confirmed Type diaZEpam [Valium] 2 mg PO Q12 PRN #10 tab 08/09/17 Rx Allergies/Adverse Reactions: Allergies Allergy/AdvReac Type Severity Reaction Status Date / Time No Known Allergies Allergy Verified 08/08/17 16:34 - Medications Medications: Current Medications Diazepam (Valium) 2 mg PO Q6H PRN; Protocol PRN Reason: Dizziness Last Admin: 08/10/17 11:45 Dose: 2 mg Hydralazine HCl (Apresoline) 10 mg IVP Q6 PRN PRN Reason: Systolic Blood Pressure Last Admin: 08/10/17 11:31 Dose: 10 mg Lisinopril (Zestril) 2.5 mg PO DAILY [facility] Ondansetron HCl (Zofran Inj) 4 mg IVP Q6H PRN PRN Reason: Nausea/Vomiting Last Admin: 08/09/17 17:55 Dose: 4 mg Pantoprazole Sodium (Protonix Ec Tab) 40 mg PO 0600 CHEMO Last Admin: 08/10/17 06:06 Dose: 40 mg Physical Exam - Constitutional Appears: Non-toxic - Head Exam Head Exam: ATRAUMATIC, NORMOCEPHALIC - ENT Exam ENT Exam: TM's Normal Bilaterally - Neck Exam Neck exam: Positive for: Normal Inspection - GI/Abdominal Exam GI & Abdominal Exam: Soft Results - Vital Signs Recent Vital Signs: Last Vital Signs Temp 98.2 F 08/10/17 08:29 Pulse 89 08/10/17 08:29 Resp 20 08/10/17 08:29 BP 203/104 H 08/10/17 11:31 Pulse Ox 97 08/10/17 08:29 - Labs Result Diagrams: 08/10/17 07:15 08/10/17 07:15 Labs: Laboratory Results - last 24 hr 08/09/17 08/10/17 08/10/17 06:45 07:15 07:15 WBC 11.1 H RBC 4.01 Hgb 11.8 L Hct 36.8 MCV 91.8 MCH 29.4 MCHC 32.1 RDW 15.0 H Plt Count 230 MPV 11.4 H Gran % 74.5 H Lymph % (Auto) 17.9 L [place] % (Auto) 7.0 H Eos % (Auto) 0.5 L Baso % (Auto) 0.1 Gran # 8.25 H Lymph # (Auto) 2.0 [place] # (Auto) 0.8 H Eos # (Auto) 0.1 Baso # (Auto) 0.01 Sodium 142 Potassium 3.1 L Chloride 104 Carbon Dioxide 27 Anion Gap 14 BUN 11 Creatinine 0.7 Est GFR ( Amer) > 60 Est GFR (Non-Af Amer) > 60 Random Glucose 95 Calcium 9.1 Total Bilirubin 0.6 AST 25 ALT 47 Alkaline Phosphatase 55 Total Protein 6.5 Albumin 3.7 Globulin 2.7 Albumin/Globulin Ratio 1.4 Hepatitis A IgM Ab Negative Hep Bs Antigen Negative Hep B Core IgM Ab Negative Hepatitis C Antibody Negative Assessment & Plan - Assessment and Plan (Free Text) Assessment: 51 y.o female with complaint of dizziness. Plan: Viral labrynthitis vs. BPPV -IV solumedrol while inpatient. -Upon discharge change to PO Medrol dose pack -Follow up with ENT outpatient. Discussed with Dr. Otero. <Earle Otero F - Last Filed: 08/10/17 14:08> Meds - Medications Medications: Current Medications Diazepam (Valium) 2 mg PO Q6H PRN; Protocol PRN Reason: Dizziness Last Admin: 08/10/17 11:45 Dose: 2 mg Hydralazine HCl (Apresoline) 10 mg IVP Q6 PRN PRN Reason: Systolic Blood Pressure Last Admin: 08/10/17 11:31 Dose: 10 mg Lisinopril (Zestril) 2.5 mg PO DAILY CHEMO Ondansetron HCl (Zofran Inj) 4 mg IVP Q6H PRN PRN Reason: Nausea/Vomiting Last Admin: 08/09/17 17:55 Dose: 4 mg Pantoprazole Sodium (Protonix Ec Tab) 40 mg PO 0600 CHEMO Last Admin: 08/10/17 06:06 Dose: 40 mg Results - Vital Signs Recent Vital Signs: Last Vital Signs Temp 98.2 F 08/10/17 08:29 Pulse 89 08/10/17 08:29 Resp 20 08/10/17 08:29 BP 203/104 H 08/10/17 11:31 Pulse Ox 97 08/10/17 08:29 - Labs Result Diagrams: 08/10/17 07:15 08/10/17 07:15 Assessment & Plan (1) Labyrinthine dysfunction of right ear Status: Acute (2) BPPV (benign paroxysmal positional vertigo) Status: Acute Priority: High (3) Hypertension Status: Acute (4) Intractable nausea and vomiting Status: Acute (5) Transaminitis Status: Acute - Date & Time Date: 08/10/17 (I saw and examined the patient with the residet, agree with documented findings/treatment and plan-Dr. Otero Attestation) Time: 14:06
[2017-08-10] MEDS: MethylPREDNISolone 40 mg Vial IVP SCH (17:52)
[2017-08-11] MEDS: MethylPREDNISolone 40 mg Vial IVP SCH ×2 (00:10→05:31)
[2017-08-11] MEDS: Pantoprazole 40 mg EC Tab PO SCH ×2 (05:31→05:32)
[2017-08-11 07:35] LABS: EOS % 0.2 % (1.5-5.0); GRAN # 7.56 (1.4-6.5); GRAN % 77.8 % (50.0-68.0); HEMOGLOBIN 12.5 g/dL (12.0-16.0); LYMPH # 1.5 (1.2-3.4); LYMPH % 15.7 % (22.0-35.0); MEAN CELL VOLUME 91.5 fl (80.0-105.0); MEAN CORPUSCULAR HEMOGLOBIN 29.4 pg (25.0-35.0); MEAN CORPUSCULAR HGB CONC 32.1 g/dl (31.0-37.0); MEAN PLATELET VOLUME 11.9 fl (7.0-11.0); MONO # 0.6 (0.1-0.6); MONO % 6.3 % (1.0-6.0); RBC 4.25 10^6/uL (3.5-6.1); RED CELL DISTRIBUTION WIDTH 15.1 % (11.5-14.5); WHITE BLOOD COUNT 9.7 10^3/ul (4.5-11.0)
[2017-08-11 08:02] LABS: BLOOD UREA NITROGEN 13 mg/dL (7-21); CALCIUM 9.2 mg/dL (8.4-10.5); GFR AFRICAN-AMERICAN > 60; GFR NON-AFRICAN AMERICAN > 60
[2017-08-11 08:38] VITALS: PULSE 84; RESP 20; TEMP 97.7; O2SAT 96
[2017-08-11] MEDS ORDERED: MethylPREDNISolone 40 mg Vial IVP SCH (10:00)
[2017-08-11 10:31] VITALS: BP 156/86
--- NOTE | 2017-08-11 11:17 | CP.PCM.DIS ---
<Tiki Alexander - Last Filed: 08/11/17 11:31> Provider - Provider Date of Admission: 08/10/17 12:23 Attending physician: Jez Roberts MD Consults: ENT: Dr. Otero Neuro: Dr. Stewart Time Spent in preparation of Discharge (in minutes): 35 Hospital Course - Lab Results Lab Results: Most Recent Lab Values WBC 9.7 10^3/ul (4.5-11.0) 08/11/17 07:10 RBC 4.25 10^6/uL (3.5-6.1) 08/11/17 07:10 Hgb 12.5 g/dL (12.0-16.0) 08/11/17 07:10 Hct 38.9 % (36.0-48.0) 08/11/17 07:10 MCV 91.5 fl (80.0-105.0) 08/11/17 07:10 MCH 29.4 pg (25.0-35.0) 08/11/17 07:10 MCHC 32.1 g/dl (31.0-37.0) 08/11/17 07:10 RDW 15.1 % (11.5-14.5) H 08/11/17 07:10 Plt Count 248 10^3/uL (120.0-450.0) 08/11/17 07:10 MPV 11.9 fl (7.0-11.0) H 08/11/17 07:10 Gran % 77.8 % (50.0-68.0) H 08/11/17 07:10 Lymph % (Auto) 15.7 % (22.0-35.0) L 08/11/17 07:10 [place] % (Auto) 6.3 % (1.0-6.0) H 08/11/17 07:10 Eos % (Auto) 0.2 % (1.5-5.0) L 08/11/17 07:10 Baso % (Auto) 0.0 % (0.0-3.0) 08/11/17 07:10 Gran # 7.56 (1.4-6.5) H 08/11/17 07:10 Lymph # (Auto) 1.5 (1.2-3.4) 08/11/17 07:10 [place] # (Auto) 0.6 (0.1-0.6) 08/11/17 07:10 Eos # (Auto) 0.0 (0.0-0.7) 08/11/17 07:10 Baso # (Auto) 0.00 K/mm3 (0.0-2.0) 08/11/17 07:10 PT 12.6 SECONDS (9.4-12.5) H 08/08/17 19:54 INR 1.10 (0.93-1.08) H 08/08/17 19:54 APTT 29.0 Seconds (25.1-36.5) 08/08/17 19:54 Sodium 142 mmol/L (132-148) 08/11/17 07:10 Potassium 3.9 mmol/L (3.6-5.0) 08/11/17 07:10 Chloride 104 mmol/L (98-107) 08/11/17 07:10 Carbon Dioxide 25 mmol/L (21-33) 08/11/17 07:10 Anion Gap 17 (10-20) 08/11/17 07:10 BUN 13 mg/dL (7-21) 08/11/17 07:10 Creatinine 0.7 mg/dl (0.7-1.2) 08/11/17 07:10 Est GFR ( Amer) > 60 08/11/17 07:10 Est GFR (Non-Af Amer) > 60 08/11/17 07:10 Random Glucose 103 mg/dL (70-110) 08/11/17 07:10 Hemoglobin A1c 5.5 % (4.2-6.5) 08/09/17 06:45 Calcium 9.2 mg/dL (8.4-10.5) 08/11/17 07:10 Phosphorus 3.4 mg/dL (2.5-4.5) 08/09/17 06:45 Magnesium 1.8 mg/dL (1.7-2.2) 08/09/17 06:45 Total Bilirubin 0.6 mg/dL (0.2-1.3) 08/10/17 07:15 AST 25 U/L (14-36) 08/10/17 07:15 ALT 47 U/L (7-56) 08/10/17 07:15 Alkaline Phosphatase 55 U/L (38-126) 08/10/17 07:15 Lactate Dehydrogenase 555 U/L (333-699) 08/08/17 19:54 Total Creatine Kinase 56 U/L (35-230) 08/08/17 19:54 Troponin I < 0.01 ng/mL 08/08/17 19:54 Total Protein 6.5 g/dL (5.8-8.3) 08/10/17 07:15 Albumin 3.7 g/dL (3.0-4.8) 08/10/17 07:15 Globulin 2.7 gm/dL 08/10/17 07:15 Albumin/Globulin Ratio 1.4 (1.1-1.8) 08/10/17 07:15 Triglycerides 71 mg/dL (35-160) 08/09/17 06:45 Cholesterol 180 mg/dL (130-200) 08/09/17 06:45 LDL Cholesterol Direct 133 mg/dL (0-129) H 08/09/17 06:45 HDL Cholesterol 35 mg/dL (29-60) 08/09/17 06:45 Free T4 0.96 ng/dL (0.78-2.19) 08/09/17 11:45 TSH 3rd Generation 0.27 mIU/mL (0.46-4.68) L 08/09/17 11:45 Beta HCG, Quant < 2.39 mIU/mL (0-6.15) 08/08/17 19:54 Urine Color Yellow (YELLOW) 08/08/17 20:25 Urine Appearance Clear (CLEAR) 08/08/17 20:25 Urine pH 7.5 (4.7-8.0) 08/08/17 20:25 Ur Specific [place] 1.015 (1.005-1.035) 08/08/17 20:25 Urine Protein Negative mg/dL (<30 mg/dL) 08/08/17 20:25 Urine Glucose (UA) Negative mg/dL (NEGATIVE) 08/08/17 20:25 Urine Ketones Trace mg/dL (NEGATIVE) H 08/08/17 20:25 Urine Blood Trace-lysed (NEGATIVE) H 08/08/17 20:25 Urine Nitrate Negative (NEGATIVE) 08/08/17 20:25 Urine Bilirubin Negative (NEGATIVE) 08/08/17 20:25 Urine Urobilinogen 0.2 E.U./dL (<1 E.U./dL) 08/08/17 20:25 Ur Leukocyte Esterase Small [place]/uL (NEGATIVE) H 08/08/17 20:25 Urine RBC 5 - 10 /hpf (0-2) 08/08/17 20:25 Urine WBC 5 - 10 /hpf (0-6) 08/08/17 20:25 Ur Epithelial Cells 10 - 12 /hpf (0-5) 08/08/17 20:25 Urine Opiates Screen Negative (NEGATIVE) 08/08/17 20:25 Urine Methadone Screen Negative (NEGATIVE) 08/08/17 20:25 Ur Barbiturates Screen Negative (NEGATIVE) 08/08/17 20:25 Ur Phencyclidine Scrn Negative (NEGATIVE) 08/08/17 20:25 Ur Amphetamines Screen Negative (NEGATIVE) 08/08/17 20:25 U Benzodiazepines Scrn Negative (NEGATIVE) 08/08/17 20:25 U Oth Cocaine Metabols Negative (NEGATIVE) 08/08/17 20:25 U Cannabinoids Screen Negative (NEGATIVE) 08/08/17 20:25 Hepatitis A IgM Ab Negative (NEGATIVE) 08/09/17 06:45 Hep Bs Antigen Negative (NEGATIVE) 08/09/17 06:45 Hep B Core IgM Ab Negative (NEGATIVE) 08/09/17 06:45 Hepatitis C Antibody Negative (NEGATIVE) 08/09/17 06:45 - Hospital Course Hospital Course: This is a 51yo female with no significant past medical history who was admitted for sudden onset on dizziness with nausea and vomiting. CT head was done which did not show any acute abnormalities. CTA was done which was also negative. Neurology was consulted and recommended Valium 2mg BID prn and vestibular rehab 3x per week. She can follow up with neurology as outpatient. Patient continued to be unsteady and dizzy so ENT was consulted. They think the dizziness can be secondary to viral labyrinthitis. They recommended steroids and for patient to be d/c on Medrol dose pack and to follow up with ENT as outpatient.. Today, she was evaluated by physical therapy and her dizziness improved and she was stable on her feet. As per PT, patient is stable to be d/c home. Of note, patient was found to have mildly elevated LFTs which resolved. Her Hep panel was negative. Her TSH was low, but T4 normal. It is recommended that patient follow up with her PMD, Dr. Matson, to repeat thyroid studies in 4-6 weeks. She was also found to be borderline hypertensive. Patient was started on Lisinopril 2.5mg and will be d/c home with a prescription. She will follow up with her PMD for ongoing BP management. Discussed plan with patient. Patient verbalized and agrees with plan. Discharge Medications: Valium 2mg PO Q12H x 5 days Medrol dose pack Protonix 40mg x 7 days Lisinopril 2.5mg Script for Vestibular rehab 3x per week. Which can be done at [facility] as per case management. - Date & Time of H&P Date of H&P: 08/08/17 Time of H&P: 22:00 Discharge Exam - Head Exam Head Exam: ATRAUMATIC, NORMAL INSPECTION, NORMOCEPHALIC - Eye Exam Eye Exam: Normal appearance, PERRL. absent: Nystagmus Pupil Exam: NORMAL ACCOMODATION, PERRL - Respiratory Exam Respiratory Exam: Clear to PA & Lateral, NORMAL BREATHING PATTERN, UNREMARKABLE. absent: Rales, Rhonchi, Wheezes - Cardiovascular Exam Cardiovascular Exam: REGULAR RHYTHM, +S1, +S2. absent: Gallop, Rubs, Systolic Murmur - GI/Abdominal Exam GI & Abdominal Exam: Normal Bowel Sounds, Soft, Unremarkable. absent: Mass, Rebound, Rigid, Tenderness - Neurological Exam Neurological exam: Alert, CN II-XII Intact, Oriented x3 - Psychiatric Exam Psychiatric exam: Normal Affect, Normal Mood - Skin Skin Exam: Dry, Intact, Normal Color, Warm Discharge Plan - Discharge Medications Prescriptions: Lisinopril [Zestril] 2.5 mg PO DAILY #30 tab Methylprednisolone [Medrol Dose Pack (21 tabs)] 4 mg PO DAILY #21 mg Pantoprazole [Protonix EC Tab] 40 mg PO 0600 #7 ect - Follow Up Plan Condition: FAIR Disposition: HOME/ ROUTINE Instructions: Vertigo (a Type of Dizziness), Labyrinthitis, Soft Diet, Nausea and Vomiting, Adult, Vestibular Exercises Additional Instructions: 1. Take Medrol dose pack as prescribed for dizziness. Take Protonix (Pill for acid reflux daily on days taking the steroid) 2. You were started on a low dose blood pressure medication, Lisinopril 2.5mg. Follow up with your primary doctor for future blood pressure management 3. You can follow up with ENT, Dr. Otero as outpatient 4. Thyroid studies: TSH low, Recommending repeat TSH and Free T4 in 4-6 weeks 5. Use Valium as needed for dizziness, but do not drive because it is a sedative. 6. Continue Vestibular therapy as outpatient 3x per week. 7. You can follow up with neurology as outpatient. If symptoms worsen please go to nearest emergency department. Referrals: Zack Bradford MD [Staff Provider] - Thomas Kumar MD [Staff Provider] - Earle Otero DO [Staff Provider] - <Jez Roberts - Last Filed: 08/11/17 12:23> Provider - Provider Date of Admission: 08/10/17 12:23 Attending physician: Jez Roberts MD Hospital Course - Lab Results Lab Results: Most Recent Lab Values WBC 9.7 10^3/ul (4.5-11.0) 08/11/17 07:10 RBC 4.25 10^6/uL (3.5-6.1) 08/11/17 07:10 Hgb 12.5 g/dL (12.0-16.0) 08/11/17 07:10 Hct 38.9 % (36.0-48.0) 08/11/17 07:10 MCV 91.5 fl (80.0-105.0) 08/11/17 07:10 MCH 29.4 pg (25.0-35.0) 08/11/17 07:10 MCHC 32.1 g/dl (31.0-37.0) 08/11/17 07:10 RDW 15.1 % (11.5-14.5) H 08/11/17 07:10 Plt Count 248 10^3/uL (120.0-450.0) 08/11/17 07:10 MPV 11.9 fl (7.0-11.0) H 08/11/17 07:10 Gran % 77.8 % (50.0-68.0) H 08/11/17 07:10 Lymph % (Auto) 15.7 % (22.0-35.0) L 08/11/17 07:10 [place] % (Auto) 6.3 % (1.0-6.0) H 08/11/17 07:10 Eos % (Auto) 0.2 % (1.5-5.0) L 08/11/17 07:10 Baso % (Auto) 0.0 % (0.0-3.0) 08/11/17 07:10 Gran # 7.56 (1.4-6.5) H 08/11/17 07:10 Lymph # (Auto) 1.5 (1.2-3.4) 08/11/17 07:10 [place] # (Auto) 0.6 (0.1-0.6) 08/11/17 07:10 Eos # (Auto) 0.0 (0.0-0.7) 08/11/17 07:10 Baso # (Auto) 0.00 K/mm3 (0.0-2.0) 08/11/17 07:10 PT 12.6 SECONDS (9.4-12.5) H 08/08/17 19:54 INR 1.10 (0.93-1.08) H 08/08/17 19:54 APTT 29.0 Seconds (25.1-36.5) 08/08/17 19:54 Sodium 142 mmol/L (132-148) 08/11/17 07:10 Potassium 3.9 mmol/L (3.6-5.0) 08/11/17 07:10 Chloride 104 mmol/L (98-107) 08/11/17 07:10 Carbon Dioxide 25 mmol/L (21-33) 08/11/17 07:10 Anion Gap 17 (10-20) 08/11/17 07:10 BUN 13 mg/dL (7-21) 08/11/17 07:10 Creatinine 0.7 mg/dl (0.7-1.2) 08/11/17 07:10 Est GFR ( Amer) > 60 08/11/17 07:10 Est GFR (Non-Af Amer) > 60 08/11/17 07:10 Random Glucose 103 mg/dL (70-110) 08/11/17 07:10 Hemoglobin A1c 5.5 % (4.2-6.5) 08/09/17 06:45 Calcium 9.2 mg/dL (8.4-10.5) 08/11/17 07:10 Phosphorus 3.4 mg/dL (2.5-4.5) 08/09/17 06:45 Magnesium 1.8 mg/dL (1.7-2.2) 08/09/17 06:45 Total Bilirubin 0.6 mg/dL (0.2-1.3) 08/10/17 07:15 AST 25 U/L (14-36) 08/10/17 07:15 ALT 47 U/L (7-56) 08/10/17 07:15 Alkaline Phosphatase 55 U/L (38-126) 08/10/17 07:15 Lactate Dehydrogenase 555 U/L (333-699) 08/08/17 19:54 Total Creatine Kinase 56 U/L (35-230) 08/08/17 19:54 Troponin I < 0.01 ng/mL 08/08/17 19:54 Total Protein 6.5 g/dL (5.8-8.3) 08/10/17 07:15 Albumin 3.7 g/dL (3.0-4.8) 08/10/17 07:15 Globulin 2.7 gm/dL 08/10/17 07:15 Albumin/Globulin Ratio 1.4 (1.1-1.8) 08/10/17 07:15 Triglycerides 71 mg/dL (35-160) 08/09/17 06:45 Cholesterol 180 mg/dL (130-200) 08/09/17 06:45 LDL Cholesterol Direct 133 mg/dL (0-129) H 08/09/17 06:45 HDL Cholesterol 35 mg/dL (29-60) 08/09/17 06:45 Free T4 0.96 ng/dL (0.78-2.19) 08/09/17 11:45 TSH 3rd Generation 0.27 mIU/mL (0.46-4.68) L 08/09/17 11:45 Beta HCG, Quant < 2.39 mIU/mL (0-6.15) 08/08/17 19:54 Urine Color Yellow (YELLOW) 08/08/17 20:25 Urine Appearance Clear (CLEAR) 08/08/17 20:25 Urine pH 7.5 (4.7-8.0) 08/08/17 20:25 Ur Specific [place] 1.015 (1.005-1.035) 08/08/17 20:25 Urine Protein Negative mg/dL (<30 mg/dL) 08/08/17 20:25 Urine Glucose (UA) Negative mg/dL (NEGATIVE) 08/08/17 20:25 Urine Ketones Trace mg/dL (NEGATIVE) H 08/08/17 20:25 Urine Blood Trace-lysed (NEGATIVE) H 08/08/17 20:25 Urine Nitrate Negative (NEGATIVE) 08/08/17 20:25 Urine Bilirubin Negative (NEGATIVE) 08/08/17 20:25 Urine Urobilinogen 0.2 E.U./dL (<1 E.U./dL) 08/08/17 20:25 Ur Leukocyte Esterase Small [place]/uL (NEGATIVE) H 08/08/17 20:25 Urine RBC 5 - 10 /hpf (0-2) 08/08/17 20:25 Urine WBC 5 - 10 /hpf (0-6) 08/08/17 20:25 Ur Epithelial Cells 10 - 12 /hpf (0-5) 08/08/17 20:25 Urine Opiates Screen Negative (NEGATIVE) 08/08/17 20:25 Urine Methadone Screen Negative (NEGATIVE) 08/08/17 20:25 Ur Barbiturates Screen Negative (NEGATIVE) 08/08/17 20:25 Ur Phencyclidine Scrn Negative (NEGATIVE) 08/08/17 20:25 Ur Amphetamines Screen Negative (NEGATIVE) 08/08/17 20:25 U Benzodiazepines Scrn Negative (NEGATIVE) 08/08/17 20:25 U Oth Cocaine Metabols Negative (NEGATIVE) 08/08/17 20:25 U Cannabinoids Screen Negative (NEGATIVE) 08/08/17 20:25 Hepatitis A IgM Ab Negative (NEGATIVE) 08/09/17 06:45 Hep Bs Antigen Negative (NEGATIVE) 08/09/17 06:45 Hep B Core IgM Ab Negative (NEGATIVE) 08/09/17 06:45 Hepatitis C Antibody Negative (NEGATIVE) 08/09/17 06:45 Attending/Attestation - Attestation I have personally seen and examined this patient.: Yes I have fully participated in the care of the patient.: Yes I have reviewed all pertinent clinical information, including history, physical exam and plan: Yes Notes (Text): 08/11/17 12:19 51 year old female with no significant past medical history who presented with complaint of dizziness associated with nausea and vomiting. CT head and CTA head/neck were negative for acute findings. She was seen by neurology who recommended outpatient follow up for vestibular rehab. She was also seen by ENT who recommended steroids and medrol dosepack upon discharge. She was seen by PT for unsteady gait which improved today. LFTs were initially mildly elevated but now improved. TSH was low with normal FT4; recommended to repeat TFTs in 4-6 weeks. Her potassium was low and repleted during stay. She was started on lisinopril for hypertension. Overall her symptoms have now improved. She is discharged home to follow up with her pmd. Follow up with neurology and ENT. Follow up with vestibular rehab. Repeat TFTs in 4-6 weeks. Jez Roberts MD Hospitalist.
== END 2017-08-11 14:29 | disposition home or self-care (01) | DRG 65 ==
LOC: ED 16:25 → ERH 21:14 → 5RSO 23:00 → OBSVTOIN 08-10 12:23
PROVIDERS: ADMIT Internal Medicine; ATTEND Internal Medicine
DX: H83.09 Labyrinthitis, unspecified ear (principal); E87.6 Hypokalemia; H55.00 Unspecified nystagmus; I10 Essential (primary) hypertension; R40.2412 Glasgow coma scale score 13-15, at arrival to emergency department

== ENCOUNTER 2018-08-22 21:09 | Emergency (ER) | payer SELFPAY ==
[2018-08-22 21:20] VITALS: BMI 22.6
[2018-08-22 21:34] VITALS: TEMP 98.6
--- NOTE | 2018-08-22 21:42 | ED PDOC ---
Arrival/HPI - General Chief Complaint: Dizziness/Lightheaded Time Seen by Provider: 08/22/18 21:12 Historian: Patient - History of Present Illness Narrative History of Present Illness (Text): 08/22/18 21:42 52 year old female, with a past medical history of labyrinthitis, benign positional vertigo, and hypertension, who presents to the emergency department complaining of dizziness x earlier today. Patient reports symptom is different from usual vertigo. She reports she is currently fasting for Ramadan, and believes it is contributing to her symptom. She also reports she had something to eat earlier today, and states she is currently feeling better. She denies any nausea, vomiting, diarrhea, chest pain, shortness of breath, headache, visual disturbances, or any other complaints. Time/Duration: 4-6 hours Symptom Onset: Gradual Symptom Course: Unchanged Activities at Onset: Light Context: Home Past Medical History - Provider Review Nursing Documentation Reviewed: Yes - Past History Past History: No Previous - Infectious Disease Hx of Infectious Diseases: None - Tetanus Immunization Tetanus Immunization: Unknown - Cardiac Hx Cardiac Disorders: No - Pulmonary Hx Respiratory Disorders: No - Neurological Hx Vertigo: Yes - HEENT Hx HEENT Disorder: No - Renal Hx Renal Disorder: No - Endocrine/Metabolic Hx Endocrine Disorders: No - Hematological/Oncological Hx Blood Disorders: No - Integumentary Hx Dermatological Disorder: No - Musculoskeletal/Rheumatological Hx Musculoskeletal Disorders: No Hx Falls: No - Gastrointestinal Hx Gastrointestinal Disorders: No - Genitourinary/Gynecological Hx Genitourinary Disorders: No - Psychiatric Hx Psychophysiologic Disorder: No Hx Substance Use: No Family/Social History - Physician Review Nursing Documentation Reviewed: Yes Family/Social History: Unknown Family HX Smoking Status: Never Smoked Hx Alcohol Use: No Hx Substance Use: No Allergies/Home Meds Allergies/Adverse Reactions: Allergies No Known Allergies Allergy (Verified 08/22/18 21:20) Review of Systems - Physician Review All systems were reviewed & negative as marked: Yes - Review of Systems Constitutional: absent: Fevers Respiratory: absent: SOB Cardiovascular: absent: Chest Pain Gastrointestinal: absent: Diarrhea, Nausea, Vomiting Neurological: Dizziness. absent: Headache Physical Exam Vital Signs Reviewed: Yes Vital Signs Temp Pulse Resp BP Pulse Ox 08/22/18 21:33 98.6 F 87 18 194/106 H 99 Temperature: Afebrile Blood Pressure: Hypertensive Pulse: Regular Respiratory Rate: Normal Appearance: Positive for: Well-Appearing, Non-Toxic, Comfortable Pain Distress: None Mental Status: Positive for: Alert and Oriented X 3 Finger Stick Blood Glucose: 99 - Systems Exam Head: Present: Atraumatic, Normocephalic Pupils: Present: PERRL Extroacular Muscles: Present: EOMI Conjunctiva: Present: Normal Mouth: Present: Moist Mucous Membranes Neck: Present: Normal Range of Motion Respiratory/Chest: Present: Clear to Auscultation, Good Air Exchange. No: Respiratory Distress, Accessory Muscle Use Cardiovascular: Present: Regular Rate and Rhythm, Normal S1, S2. No: Murmurs Abdomen: No: Tenderness, Distention, Peritoneal Signs Back: Present: Normal Inspection Upper Extremity: Present: Normal Inspection. No: Cyanosis, Edema Lower Extremity: Present: Normal Inspection. No: Edema Neurological: Present: GCS=15, CN II-XII Intact, Speech Normal, Normal Sensory Function Skin: Present: Warm, Dry, Normal Color. No: Rashes Psychiatric: Present: Alert, Oriented x 3, Normal Insight, Normal Concentration Medical Decision Making ED Course and Treatment: 08/22/18 21:40 Impression: 52 year old female presents to the ED complaining of dizziness x earlier today. Differential Diagnosis included but are not limited to: Plan: -- EKG -- Labs -- Iv fluids -- Reassess and disposition Prior Visits: Notes and results from previous visits were reviewed. Progress Notes: - EKG Interpretation EKG Interpretation (Text): 08/22/18 21:48 EKG reviewed, shows: NSR at 94 bpm, no acute changes. Interpreted by ED Physician: Yes - Medication Orders Current Medication Orders: Dextrose/Sodium Chloride (Dextrose 5%/0.45% Ns 1000 Ml) 1,000 mls @ 100 mls/hr IV .Q10H CHEMO - Scribe Statement The provider has reviewed the documentation as recorded by the Prateekibcong Lubin All medical record entries made by the Prateekibcong were at my direction and personally dictated by me. I have reviewed the chart and agree that the record accurately reflects my personal performance of the history, physical exam, medical decision making, and the department course for this patient. I have also personally directed, reviewed, and agree with the discharge instructions and disposition. Disposition/Present on Arrival - Present on Arrival Any Indicators Present on Arrival: No History of DVT/PE: No History of Uncontrolled Diabetes: No Urinary Catheter: No History of Decub. Ulcer: No History Surgical Site Infection Following: None - Disposition Have Diagnosis and Disposition been Completed?: Yes Diagnosis: Hypertension Disposition: HOME/ ROUTINE Disposition Time: :19 Patient Plan: Discharge Patient Problems: Current Active Problems Problem Status Onset Hypertension Acute Condition: STABLE Discharge Instructions (ExitCare): High Blood Pressure (DC) Additional Instructions: Maintain proper diet/take meds as prescribed/follow up with your doctor this week Prescriptions: amLODIPine [Norvasc] 5 mg PO DAILY #21 tab Referrals: PCP,NO [Primary Care Provider] - Follow up with primary Forms: [employer] ([place])
[2018-08-22] MEDS ORDERED: Dextrose 5%/0.45% NS 1,000 ML IV SCH (21:45)
[2018-08-22 22:22] LABS: ALB/GLOB RATIO 1.3 (1.1-1.8); ALBUMIN 4.5 g/dL (3.0-4.8); ALT/SGPT 27 U/L (7-56); AST/SGOT 24 U/L (14-36); BLOOD UREA NITROGEN 16 mg/dL (7-21); CALCIUM 9.5 mg/dL (8.4-10.5); GFR NON-AFRICAN AMERICAN > 60
[2018-08-22 22:28] LABS: HEMOGLOBIN 13.1 g/dL (12.0-16.0); MEAN CELL VOLUME 91.9 fl (80.0-105.0); MEAN CORPUSCULAR HEMOGLOBIN 30.5 pg (25.0-35.0); MEAN CORPUSCULAR HGB CONC 33.2 g/dl (31.0-37.0); MEAN PLATELET VOLUME 12.3 fl (7.0-11.0); RBC 4.3 10^6/uL (3.5-6.1); WHITE BLOOD COUNT 9.1 10^3/uL (4.5-11.0)
[2018-08-23 01:45] VITALS: BP 149/89; PULSE 83; RESP 16; O2SAT 96
--- NOTE | 2018-08-23 08:53 | CARD ---
APPROVED REPORT Date of service: 08/22/2018 EKG Measurement Heart [id number] <Conclusion> Normal sinus rhythm Minimal voltage criteria for LVH, may be normal variant Borderline ECG
== END 2018-08-23 01:44 | disposition home or self-care (01) ==
LOC: ED 21:09
DX: I10 Essential (primary) hypertension (principal)
CPT/HCPCS: 80053; 82948; 85027; 93005; 96360; 96361; 99284; J7042